=== PATIENT | female | born 1995 | race Caucasian/White ===

== ENCOUNTER → 2021-03-24 13:55 | Outpatient (BNVA) | payer OTHER, SELFPAY | PROVIDERS: Family Provider Nurse Practitioner Family; PCP Nurse Practitioner Family; Visit Provider Nurse Practitioner Family | DX: Z30.09 Encounter for other general counseling and advice on contraception (principal); I10 Essential (primary) hypertension | CPT/HCPCS: 81000; 81003; 81025 ==

== ENCOUNTER → 2021-05-01 12:00 | Outpatient (BNVA) | payer OTHER, SELFPAY | PROVIDERS: Family Provider Nurse Practitioner Family; PCP Nurse Practitioner Family; Visit Provider Nurse Practitioner Family | DX: I10 Essential (primary) hypertension; E78.5 Hyperlipidemia, unspecified | CPT/HCPCS: 80053; 80061; 83036 ==

== ENCOUNTER → 2022-04-19 10:21 | Outpatient (BNVA) | payer BC, SELFPAY | PROVIDERS: Family Provider Nurse Practitioner Family; Visit Provider Nurse Practitioner | DX: J02.9 Acute pharyngitis, unspecified (principal); J10.1 Influenza due to other identified influenza virus with other respiratory manifestations | CPT/HCPCS: 87071; 87880 ==

== ENCOUNTER → 2022-11-10 10:13 | Outpatient (BNVA) | payer SELFPAY | PROVIDERS: Family Provider Nurse Practitioner Family; PCP Family Medicine; Visit Provider Nurse Practitioner | DX: Z01.89 Encounter for other specified special examinations (principal) ==

== ENCOUNTER → 2022-11-26 11:00 | Outpatient (BNVA) | payer BC, SELFPAY | PROVIDERS: Family Provider Nurse Practitioner Family; PCP Family Medicine; Visit Provider Obstetrics & Gynecology | DX: N92.6 Irregular menstruation, unspecified (principal) | CPT/HCPCS: 83525 ==

== ENCOUNTER → 2023-03-11 07:54 | Outpatient (BNVA) | payer BC, SELFPAY | PROVIDERS: Family Provider Nurse Practitioner Family; PCP Clinical Nurse Specialist Adult Health; Visit Provider Clinical Nurse Specialist Adult Health | DX: N92.6 Irregular menstruation, unspecified (principal); Z68.42 Body mass index [BMI] 45.0-49.9, adult; E88.810 Metabolic syndrome | CPT/HCPCS: 80048; 83525 ==

== ENCOUNTER 2023-04-30 23:22 | Emergency (ER) | payer OTHER, SELFPAY ==
[2023-04-30 23:42] VITALS: BP 165/102; PULSE 89; RESP 17; TEMP 37; O2SAT 97; BMI 43.8
[2023-05-01 00:50] LABS: Basophils % 0.3 %; Eosinophils # 0.3 10^3/uL (0.0-0.8); Eosinophils % 3.7 %; Hematocrit 36.9 % (36-47); Lymphocytes # 2.2 10^3/uL (0.8-4.8); Lymphocytes % 25.8 %; Mean Corpuscular HGB Conc 34.4 g/dL (30-55); Mean Corpuscular Volume 95.8 fl (85-98); Mean Platelet Volume 9.6 fL (7.4-10.4); Monocytes # 0.5 10^3/uL (0.2-0.9); Monocytes % 5.6 %; Neutrophils # 5.53 10^3/uL (1.8-7.7); Neutrophils % 64.4 %; Nucleated Red Blood Cells % 0 %; Platelet Count 192 10^3/cmm (157-399); Red Blood Count 3.85 10^6/uL (3.85-5.65); Red Cell Distribution Width 14.1 % (12.1-15.1)
[2023-05-01 01:06] LABS: HCG, Serum Qual Negative (Negative)
[2023-05-01 01:13] LABS: Alanine Aminotransferase 49 U/L (0-33); Albumin Level 4.9 g/dL (3.5-5.2); Alkaline Phosphatase 69 U/L (35-105); Anion Gap 14.6 (5-19); Aspartate Amino Transferase 30 U/L (0-32); Blood Urea Nitrogen 11 mg/dL (6-20); Calcium 9.8 mg/dL (8.5-10.5); Carbon Dioxide 25 mmol/L (22-29); Chloride 104 mmol/L (98-107); Glomerular Filtration Rate 100.4 mL/min (90-130); Glucose 115 mg/dL (65-115); Osmolality Calculated 290 mOsm/kg (285-295); Potassium 3.6 mmol/L (3.5-5.1); Sodium 140 mmol/L (136-145); Total Bilirubin 0.6 mg/dL (0.15-1.2); Total Protein 7.9 g/dL (6.6-8.7)
--- NOTE | 2023-05-01 01:56 | USR_ITS ---
PROCEDURE INFORMATION: Exam: US Duplex Artery or Vein of the Abdominal and/or Reproductive Organs, Limited Ovaries Exam date and time: 05/01/2023 2:58 AM Age: 27 years old Clinical indication: Other: Bleeding; Pelvic pain; Additional info: Heavy vaginal bleeding TECHNIQUE: Imaging protocol: Real-time duplex ultrasound scan of the arterial or venous flow with grande scale, color Doppler flow and spectral waveform analysis with image documentation. Limited duplex exam focused on the ovaries. Duplex exam was performed to evaluate for torsion and other vascular conditions. COMPARISON: No relevant prior studies available. FINDINGS: Right ovary/adnexa: Normal duplex of the ovary. Normal Doppler waveforms and color flow. No evidence of ovarian torsion. Left ovary/adnexa: Normal duplex of the ovary. Normal Doppler waveforms and color flow. No evidence of ovarian torsion. PROCEDURE INFORMATION: Exam: US Pelvis, Transvaginal Exam date and time: 05/01/2023 2:58 AM Age: 27 years old Clinical indication: Other: Bleeding; Pelvic pain; Additional info: Heavy vaginal bleeding TECHNIQUE: Imaging protocol: Real-time transvaginal pelvic ultrasound with image documentation. Transvaginal imaging was used for better evaluation of the endometrium, adnexa, and/or cervix. COMPARISON: No relevant prior studies available. FINDINGS: Uterus: No focal uterine mass or endometrial thickening is identified. Right ovary/adnexa: Unremarkable. No mass. Normal ovarian blood flow. Left ovary/adnexa: Left ovarian complex cyst measures up to 21 x 19 x 16 mm. This has a cyst within a cyst appearance. No vascular or solid mass. Normal ovarian blood flow. Intraperitoneal space: Trace cul-de-sac free fluid. US/US transvaginal [id number] IMPRESSION: Normal duplex of the ovaries. No evidence of ovarian torsion. IMPRESSION: 1. Left ovarian complex cyst measures up to 21 x 19 x 16 mm. If pain persists, recommend short-term follow-up. 2. Trace cul-de-sac free fluid is probably physiologic. 3. Otherwise negative.
--- NOTE | 2023-05-01 04:27 | PC.NURSE ---
Pt sent home with 2tabs of Roslyn 5/[address] Lacey orders.
[2023-05-01] MEDS: ketorolac 10 mg Tablet PO (04:35)
[2023-05-01 05:02] VITALS: PULSE 97; RESP 18; O2SAT 97
--- NOTE | 2023-05-01 16:31 | ED_ITS ---
HPI - Female Genitourinary 2 General: Chief complaint: Vaginal Bleeding Stated complaint: heavy Vaginal Bleeding Time Seen by Provider: 05/01/23 02:16 History of Present Illness: Healthy 27 year old female presenting with risk vaginal bleeding. She notes that she has soaked several pads. She states that she had a long, stringy clot earlier in the day. [facility], and a urinalysis was negative. No other testing was done there. She does not normally have heavy periods, and if this is a period, she would be a week early. She has taken several tests recently, and they have been negative. No fever. No hx of procedures on cervix. No other signficant discharge. Associated symptoms: Reports abdominal pain; Deny nausea or vaginal discharge Review of Systems 2 GI: Reports: abdominal pain; Denies: nausea or vomiting : Reports: vaginal bleeding and pelvic pain; Denies: flank pain, difficulty voiding or vaginal discharge PFSH ED 2 PFSH: Medical History BMI 45.0-49.9, adult Hyperinsulinemia Hypertension labetalol effective Insomnia trazodone is effective Metabolic syndrome Subclinical hypothyroidism not currently on medication Surgical History No pertinent past surgical history Family History Father Hypertension Hyperlipidemia Other Diabetes Stroke Denies family history of CAD (coronary artery disease) Clotting disorder Dementia Psychiatric illness Chronic kidney disease (CKD) Anesthesia complication Bleeding disorder Lung disease Cancer Social History Smoking and tobacco/nicotine status: never used tobacco/nicotine Alcohol intake: never Substance/Drug Use: never Lives independently: Yes Marital status: Number of children: 0 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 needs: No Agree to transfusion: Yes Physical Exam 2 Const: COMMON NORMALS: no acute distress GENERAL APPEARANCE: cooperative; not ill appearing and not frail appearing HENMT: COMMON NORMALS: normocephalic and atraumatic HEAD & SCALP: n ormocephalic and atraumatic FACE & SINUS: normal facial exam and face symmetric Eye: COMMON NORMALS: EOMs intact bilaterally Neck/C-Spine: GENERAL: Yes trachea midline Chest: CHEST: Yes Symmetrical chest wall rise Resp: COMMON NORMALS: normal respiratory effort, No retractions, No use of accessory muscles and clear to auscultation bilaterally AUSCULTATION: clear to auscultation bilaterally Cardio: COMMON NORMALS: regular rate and regular rhythm RATE: regular rate RHYTHM: regular rhythm GI: COMMON NORMALS: Normal to inspection, nondistended, normoactive bowel sounds present : OTHER: suprapubic tenderness Extremity: COMMON NORMALS: no pedal edema Neuro: MARK COMA SCALE: document GCS findings [place] coma scale eye opening: Spontaneous [place] coma scale verbal response: Orientated Mark coma scale motor response: Obey commands [place] coma scale total score: 15 S ENSORY EXAM: Yes extremities (intact) Psych: COMMON NORMALS: speech normal SPEECH: Yes normal speech Skin: COMMON NORMALS: no rashes or lesions noted GENERAL SKIN EXAM: no rashes or lesions noted Course 2 Vital Signs: Vital signs: Vital Signs Temperature 98.6 F 04/30/23 23:42 Pulse Rate 97 05/01/23 05:02 Respiratory Rate 18 05/01/23 05:02 Blood Pressure 165/102 04/30/23 23:42 Pulse Oximetry 97 05/01/23 05:02 Oxygen Delivery Me thod Room Air 04/30/23 23:42 [facility] - Female Medical Decision Making Patient is hypertensive. Hemoglobin is 12.7. Platelet count is normal. BMP is normal. Liver enzymes are not remarkable. Serum negative. Ultrasound is performed, shows a normal cervix, blood flow to both ovaries, a complex left ovarian cyst. Normal endometrial stripe, and no mass. She'll be allowed home. Repeat hemoglobin if significant bleeding continues. She will be placed on five days of provera which should stop bleeding, and then provide a withdrawal bleed. This was explained to her. Outpatient follow up. Return for continued brisk bleeding. Lab Data 05/01/23 00:41 05/01/23 00:41 Radiology Impressions Transvaginal US 05/01/23 01:56 IMPRESSION: Normal duplex of the ovaries. No evidence of ovarian torsion. IMPRESSION: 1. Left ovarian complex cyst measures up to 21 x 19 x 16 mm. If pain persists, recommend short-term follow-up. 2. Trace cul-de-sac free fluid is probably physiologic. 3. Otherwise negative. Laboratory Results WBC 8.60 10^3/uL (3.29-11.43) 05/01/23 00:41 RBC 3.85 10^6/uL (3.85-5.65) 05/01/23 00:41 Hgb 12.70 g/dL (11.27-16.99) 05/01/23 00:41 Hct 36.9 % (36-47) 05/01/23 00:41 MCV 95.8 fl (85-98) 05/01/23 00:41 MCH 33.0 pg (27-33) 05/01/23 00:41 MCHC 34.4 g/dL (30-55) 05/01/23 00:41 RDW 14.1 % (12.1-15.1) 05/01/23 00:41 Plt Count 192 10^3/cmm (157-399) 05/01/23 00:41 MPV 9.6 fL (7.4-10.4) 05/01/23 00:41 Neut % (Auto) 64.4 % 05/01/23 00:41 Lymph % (Auto) 25.8 % 05/01/23 00:41 [place] % (Auto) 5.6 % 05/01/23 00:41 Eos % (Auto) 3.7 % 05/01/23 00:41 Baso % (Auto) 0.3 % 05/01/23 00:41 Neut # (Auto) 5.53 10^3/uL (1.8-7.7) 05/01/23 00:41 Lymph # (Auto) 2.2 10^3/uL (0.8-4.8) 05/01/23 00:41 [place] # (Auto) 0.5 10^3/uL (0.2-0.9) 05/01/23 00:41 Eos # (Auto) 0.3 10^3/uL (0.0-0.8) 05/01/23 00:41 Baso # (Auto) 0.0 10^3/uL (0.0-0.1) 05/01/23 00:41 Nucleated RBC % (auto) 0 % 05/01/23 00:41 Nucleated RBCs # 0.0 /100WBC 05/01/23 00:41 Sodium 140 mmol/L (136-145) 05/01/23 00:41 Potassium 3.6 mmol/L (3.5-5.1) 05/01/23 00:41 Chloride 104 mmol/L (98-107) 05/01/23 00:41 Carbon Dioxide 25 mmol/L (22-29) 05/01/23 00:41 Anion Gap 14.6 (5-19) 05/01/23 00:41 BUN 11 mg/dL (6-20) 05/01/23 00:41 Creatinine 0.7 mg/dL (0.5-0.9) 05/01/23 00:41 GFR Calculation 100.4 mL/min (90-130) 05/01/23 00:41 Glucose 115 mg/dL (65-115) 05/01/23 00:41 Calculated Osmolality 290 mOsm/kg (285-295) 05/01/23 00:41 Calcium 9.8 mg/dL (8.5-10.5) 05/01/23 00:41 Total Bilirubin 0.6 mg/dL (0.15-1.2) 05/01/23 00:41 AST 30 U/L (0-32) 05/01/23 00:41 ALT 49 U/L (0-33) H 05/01/23 00:41 Alkaline Phosphatase 69 U/L (35-105) 05/01/23 00:41 Total Protein 7.9 g/dL (6.6-8.7) 05/01/23 00:41 Albumin 4.9 g/dL (3.5-5.2) 05/01/23 00:41 Globulin 3.0 g/dL (1.3-4.6) 05/01/23 00:41 HCG, Qual Negative (Negative) 05/01/23 00:41 All radiology interpretation(s) finalized by discharge Discharge Plan Discharge Patient Disposition: Home Clinical Impression: Dysfunctional uterine bleeding Condition: Stable Prescriptions: New Provera 10 mg tablet 10 mg PO DAILY 5 Days Qty: 5 0RF Rx Instructions: begin day 21 of cycle ketorolac 10 mg tablet 10 mg PO TID PRN (Reason: pain) Qty: 12 0RF No Action prenat.vits,rowena,hao-ahwj-mrlda Tablet 1 tab PO DAILY cetirizine 10 mg tablet 10 mg PO DAILY PRN (Reason: allergy symptoms) Qty: 30 0RF labetalol 200 mg tablet 200 mg PO BID Qty: 180 3RF metformin 500 mg tablet extended release 24 hr 500 mg PO BID Qty: 60 6RF trazodone 50 mg tablet 50 mg PO .qhs Qty: 90 0RF Discharge Orders: Discharge ED (Routine); Ordered 05/01/23 Ordered By: Johnny Lacey Patient Instructions: Abnormal (Dysfunctional) Uterine Bleeding (ED), Opioid Safety, Pain Management Activity Restrictions/Additional Instructions: Medication as directed. See your doctor next week. Have your blood count rechecked in a few days. Return for continuing to saturate pads at a rate of a pad every 1-2 hours for 3-4 consecutive hours despite treatment, fever, increasing pain, other concerning symptoms. Coding Level of Care Code ED Veneer Matcher for Antonio Maldonado
== END 2023-05-01 05:00 | disposition home or self-care (01) ==
PROVIDERS: Emergency Medicine; Emergency Provider Emergency Medicine
DX: N93.8 Other specified abnormal uterine and vaginal bleeding (principal); Z79.84 Long term (current) use of oral hypoglycemic drugs; N83.292 Other ovarian cyst, left side; I10 Essential (primary) hypertension
CPT/HCPCS: 36415; 76830; 80053; 81025; 84703; 85025; 99284

== ENCOUNTER → 2023-10-26 08:49 | Outpatient (BNVA) | payer SELFPAY | PROVIDERS: Visit Provider Nurse Practitioner Women's Health | DX: E28.2 Polycystic ovarian syndrome (principal); N97.0 Female infertility associated with anovulation; N92.6 Irregular menstruation, unspecified | CPT/HCPCS: 82306; 82670; 83001; 83002; 83036; 83520; 84146; 84439; 84443; 84481; 87491; 87591 ==

== ENCOUNTER 2023-11-13 06:00 | Outpatient (CLI) | payer OTHER, SELFPAY ==
[2023-11-13 09:30] LABS: Progesterone 1.66 ng/mL
== END 2023-11-13 06:01 | disposition home or self-care (01) ==
LOC: LAB 02-02 12:43
PROVIDERS: PCP Clinical Nurse Specialist Adult Health
DX: E28.2 Polycystic ovarian syndrome (principal); N97.0 Female infertility associated with anovulation
CPT/HCPCS: 36415; 84144

== ENCOUNTER → 2023-11-22 15:29 | Outpatient (BNVA) | payer OTHER, SELFPAY | PROVIDERS: PCP Clinical Nurse Specialist Adult Health; Visit Provider Nurse Practitioner Women's Health | DX: Z34.90 Encounter for supervision of normal pregnancy, unspecified, unspecified trimester (principal) | CPT/HCPCS: 76830 ==

== ENCOUNTER → 2023-11-29 12:10 | Outpatient (BNVA) | payer OTHER, SELFPAY | PROVIDERS: PCP Clinical Nurse Specialist Adult Health; Visit Provider Obstetrics & Gynecology | DX: N92.6 Irregular menstruation, unspecified (principal) | CPT/HCPCS: 84702 ==

== ENCOUNTER → 2023-12-01 12:05 | Outpatient (BNVA) | payer OTHER, SELFPAY | PROVIDERS: PCP Clinical Nurse Specialist Adult Health; Visit Provider Nurse Practitioner Women's Health | DX: N92.6 Irregular menstruation, unspecified (principal) | CPT/HCPCS: 84702 ==

== ENCOUNTER → 2023-12-09 09:09 | Outpatient (BNVA) | payer OTHER, SELFPAY | PROVIDERS: PCP Clinical Nurse Specialist Adult Health; Visit Provider Nurse Practitioner Women's Health | DX: Z34.90 Encounter for supervision of normal pregnancy, unspecified, unspecified trimester (principal) | CPT/HCPCS: 84702 ==

== ENCOUNTER → 2023-12-28 15:15 | Outpatient (BNVA) | payer OTHER, SELFPAY | PROVIDERS: PCP Clinical Nurse Specialist Adult Health; Visit Provider Nurse Practitioner Women's Health | DX: Z36.87 Encounter for antenatal screening for uncertain dates (principal) | CPT/HCPCS: 76801 ==

== ENCOUNTER → 2023-12-30 07:57 | Outpatient (BNVA) | payer OTHER, SELFPAY | PROVIDERS: PCP Clinical Nurse Specialist Adult Health; Visit Provider Nurse Practitioner Women's Health | DX: Z34.90 Encounter for supervision of normal pregnancy, unspecified, unspecified trimester (principal) | CPT/HCPCS: 80307; 84315; 84439; 84443; 84481; 85025; 86592; 86762; 86803; 86850; 86900; 87086; 87340; 87491; 87591; 87806 ==

== ENCOUNTER → 2024-02-08 09:17 | Outpatient (BNVA) | payer OTHER, SELFPAY | PROVIDERS: PCP Clinical Nurse Specialist Adult Health; Visit Provider Obstetrics & Gynecology | DX: Z34.90 Encounter for supervision of normal pregnancy, unspecified, unspecified trimester (principal) | CPT/HCPCS: 82950 ==

== ENCOUNTER → 2024-03-23 14:16 | Outpatient (BNVA) | payer OTHER, SELFPAY | PROVIDERS: PCP Clinical Nurse Specialist Adult Health; Visit Provider Obstetrics & Gynecology | DX: Z36.2 Encounter for other antenatal screening follow-up (principal); Z3A.20 20 weeks gestation of pregnancy | CPT/HCPCS: 76805 ==

== ENCOUNTER → 2024-04-21 11:57 | Outpatient (BNVA) | payer OTHER, SELFPAY | PROVIDERS: PCP Clinical Nurse Specialist Adult Health; Visit Provider Obstetrics & Gynecology | DX: O26.899 Other specified pregnancy related conditions, unspecified trimester (principal); Z67.91 Unspecified blood type, Rh negative | CPT/HCPCS: 82950 ==

== ENCOUNTER 2024-05-09 09:15 | Outpatient (CLI) | payer OTHER, SELFPAY ==
[2024-05-09] VITALS (15 sets, daily range): BP systolic 125–164; BP diastolic 71–109; PULSE 93–125; BMI 42.1
--- NOTE | 2024-05-09 10:09 | USR_ITS ---
PROCEDURE INFORMATION: Exam: US Biophysical Profile Without Non-Stress Test Exam date and time: 05/09/2024 10:26 AM Age: 28 years old Clinical indication: Other: Gestational hypertension; . No history of recent trauma or surgery is provided. TECHNIQUE: Imaging protocol: US biophysical profile without non-stress testing. 30image(s) are provided. COMPARISON: US OB >= 14 weeks fetus [id number] 03/23/2024 2:20 PM FINDINGS: heart rate: 147 bpm presentation and position: There appears to be vertex presentation currently. There is limited , extremity survey evaluation. Placenta: The placenta appears to be anterior. Amniotic fluid index: MAXIMUS is 16.74 cm currently. BIOPHYSICAL PROFILE: breathing (BPP): 2 out of 2. gross body movement (BPP): 2 out of 2. tone (BPP): 2 out of 2. Amniotic fluid (BPP): 2 out of 2. MATERNAL ANATOMY: Cervix: Cervical length measures 6.8 cm. No localized fluid collections are appreciated. Urinary bladder: The partially filled maternal bladder contours appear unremarkable overall. No other significant interval changes are appreciated. US/US OB BPP wo NST [id number] IMPRESSION: SLIUP is demonstrated with 01/05 biophysical profile.
[2024-05-09 10:18] LABS: Bilirubin Urine Negative (Negative); Blood Urine Negative (Negative); Glucose Urine UA Negative (Normal); Ketones Urine Negative (Negative); Leukocyte Esterase Urine Trace (Negative); Nitrate Urine Negative (Negative); Protein Urine Negative (Negative); Specific Gravity, Urine 1.024 (1.005-1.030); Urine Appearance Cloudy (CLEAR)
[2024-05-09 10:23] LABS: Basophils % 0.1 %; Eosinophils # 0.1 10^3/uL (0.0-0.8); Eosinophils % 1.2 %; Hematocrit 30.8 % (36-47); Lymphocytes # 1.1 10^3/uL (0.8-4.8); Lymphocytes % 13.4 %; Mean Corpuscular HGB Conc 33.8 g/dL (30-55); Mean Corpuscular Hemoglobin 32.5 pg (27-33); Mean Corpuscular Volume 96.3 fl (85-98); Mean Platelet Volume 9.5 fL (7.4-10.4); Monocytes # 0.3 10^3/uL (0.2-0.9); Monocytes % 4.2 %; Neutrophils # 6.56 10^3/uL (1.8-7.7); Neutrophils % 80.2 %; Nucleated Red Blood Cells % 0 %; Platelet Count 166 10^3/cmm (157-399); Red Cell Distribution Width 16.8 % (12.1-15.1); White Blood Count 8.18 10^3/uL (3.29-11.43)
[2024-05-09 10:33] LABS: Urine Color Orange (Yellow)
[2024-05-09 10:34] LABS: UA Manual Slide Review YES; UA Slide Review UA Slide Review Perf
[2024-05-09 10:35] LABS: Add Urine Culture? No; Add Urine Microscopic? YES; Bacteria Urine TRACE /hpf; Hyaline Casts Urine 0-4 /lpf; Mucus Urine 1+ /hpf; RBC Urine 0-4 /hpf (0-2); Transitional Epi Cells Urine 0-4 /hpf; WBC Urine 0-4 /hpf (0-5)
[2024-05-09 10:36] LABS: Urine Creatinine 212 mg/dL (28-217); Urine Protein Random 15 mg/dL
[2024-05-09 10:38] LABS: UPRO/UCREAT Ratio 0.07 mg/mg CR
[2024-05-09 10:40] LABS: Alanine Aminotransferase 8 U/L (0-33); Albumin Level 3.9 g/dL (3.5-5.2); Alkaline Phosphatase 59 U/L (35-105); Anion Gap 13.8 (5-19); Aspartate Amino Transferase 11 U/L (0-32); Blood Urea Nitrogen 7 mg/dL (6-20); Calcium 9.7 mg/dL (8.5-10.5); Carbon Dioxide 23 mmol/L (22-29); Chloride 102 mmol/L (98-107); Creatinine Clr Calc Pharmacy 189.0037; Globulin 2.7 g/dL (1.3-4.6); Glucose 108 mg/dL (65-115); Osmolality Calculated 279 mOsm/kg (285-295); Potassium 3.8 mmol/L (3.5-5.1); Sodium 135 mmol/L (136-145); Total Bilirubin 0.7 mg/dL (0.15-1.2); Total Protein 6.6 g/dL (6.6-8.7); Uric Acid 5.4 mg/dL (2.4-5.7)
[2024-05-09] MEDS: NIFEdipine 10 mg Capsule PO (11:26)
--- NOTE | 2024-05-09 12:29 | ECG_ITS ---
Fileboard Test Date: 2024-05-09 Pat Name: Della Cantu Department: Room: OB13 Gender: Female Record Maker: : 1995 Requested By: Ignacio Dominique Order Number: [id number] MD: Renan Mueller M.D. Measurements Intervals [place] Rate: 117 P: 20 [place]: 148 QRS: 5 QRSD: 78 T: -8 QT: 331 QTc: 462 Interpretive Statements SINUS TACHYCARDIA MODERATE VOLTAGE CRITERIA FOR LVH, CONSIDER NORMAL VARIANT [MEETS CRITERIA IN ONE OF: R(aVL), S(V1), R(V5), R(V5/V6)+S(V1)] NONSPECIFIC T-WAVE ABNORMALITY ABNORMAL RHYTHM ECG No previous ECG available for comparison Electronically Signed On 05-10-2024 01:10:25 SHIRT SORTER by Renan Mueller M.D. [email or web address]
== END 2024-05-09 14:00 | disposition home or self-care (01) ==
LOC: OPOB 09:21 → OBGYN 09:23
PROVIDERS: PCP Clinical Nurse Specialist Adult Health; Visit Provider Obstetrics & Gynecology
DX: O26.899 Other specified pregnancy related conditions, unspecified trimester (principal); Z3A.00 Weeks of gestation of pregnancy not specified; R42 Dizziness and giddiness
CPT/HCPCS: 36415; 59025; 76819; 80053; 81001; 82570; 84156; 84550; 85025; 93005; 99211

== ENCOUNTER 2024-05-19 14:55 | Outpatient (CLI) | payer OTHER, SELFPAY ==
--- NOTE | 2024-05-19 15:10 | PC.NURSE ---
Patient sent from clinic with Rhogam injection. Rhogam given in right gluteus. Lot number [id number]. expiration 11/21/25
== END 2024-05-19 15:12 | disposition home or self-care (01) ==
LOC: OPOB 15:06 → OBGYN 15:06
PROVIDERS: PCP Clinical Nurse Specialist Adult Health; Visit Provider Obstetrics & Gynecology
DX: O26.899 Other specified pregnancy related conditions, unspecified trimester (principal); Z3A.00 Weeks of gestation of pregnancy not specified
CPT/HCPCS: 84315; 85025

== ENCOUNTER 2024-06-05 15:34 | Outpatient (CLI) | payer OTHER, SELFPAY ==
[2024-06-05 15:41] VITALS: RESP 18
[2024-06-05 15:43] VITALS: BP 158/102; PULSE 117
[2024-06-05 15:59] VITALS: BP 131/78; PULSE 109
[2024-06-05 16:06] VITALS: RESP 18
== END 2024-06-05 16:10 ==
LOC: OPOB 15:34 → OBGYN 15:35
PROVIDERS: PCP Clinical Nurse Specialist Adult Health; Visit Provider Obstetrics & Gynecology
DX: O16.9 Unspecified maternal hypertension, unspecified trimester (principal); Z3A.00 Weeks of gestation of pregnancy not specified
CPT/HCPCS: 59025

== ENCOUNTER → 2024-06-16 13:47 | Outpatient (BNVA) | payer OTHER, SELFPAY | PROVIDERS: PCP Clinical Nurse Specialist Adult Health; Visit Provider Obstetrics & Gynecology | DX: O10.919 Unspecified pre-existing hypertension complicating pregnancy, unspecified trimester (principal); Z3A.32 32 weeks gestation of pregnancy | CPT/HCPCS: 84315 ==

== ENCOUNTER 2024-06-22 16:00 | Outpatient (CLI) | payer OTHER, SELFPAY ==
[2024-06-22] VITALS (13 sets, daily range): BP systolic 137–174; BP diastolic 89–108; PULSE 101–114; RESP 16; BMI 42.4
[2024-06-22] MEDS: NIFEdipine ER (24 hr) 30 mg Tablet PO (17:58)
--- NOTE | 2024-06-22 18:10 | P.TNLD_ITS ---
OB L&D Triage Visit Information: Date of evaluation: 06/22/24 Comments/Additional reason(s) for visit: Patient seen in L&D 28 y.o. 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 BPs 158 / 97; 153 / 93; 162 / 94; 174 / 93; 167 / 102 General comfortable Lungs: clear Cor: RRR Abd: nontender Ext: no edema External monitor: heart tracing good variability, + accelerations OB sono 03-23-24 20 wks; WNL 1-h glucola 04-21-24 108 A/P: 33 w 3 d Chronic hypertension Fetus reassuring BPs elevated Will give her PM dose of Procardia 30 mg XL Plan 24-h urine collection for protein Patient has f/u ob sono appointment Patient has f/u appointment with Dr. Quick Discharge to home Continue checking BPs at home Call / return if headaches, swelling, blurry vision Evaluation: monitor accelerations: Present 15x15 Vital signs: Vital Signs - 24 hr 06/22/24 16:16 06/22/24 16:31 06/22/24 16:46 Pulse Rate 107 H 108 H 104 H Respiratory Rate Blood Pressure 174/93 159/98 162/94 06/22/24 17:01 06/22/24 17:16 06/22/24 17:16 Pulse Rate 105 H 107 H Respiratory Rate Blood Pressure 153/93 158/97 06/22/24 17:31 06/22/24 17:31 06/22/24 17:46 Pulse Rate 114 H Respiratory Rate Blood Pressure 167/102 159/104 06/22/24 17:46 06/22/24 18:01 06/22/24 18:01 Pulse Rate 107 H 101 H Respiratory Rate Blood Pressure 168/104 06/22/24 18:16 06/22/24 18:16 06/22/24 18:31 Pulse Rate 103 H Respiratory Rate Blood Pressure 171/108 173/106 06/22/24 18:31 06/22/24 18:46 06/22/24 18:46 Pulse Rate 105 H 103 H Respiratory Rate Blood Pressure 142/89 06/22/24 19:01 06/22/24 19:01 06/22/24 19:06 Pulse Rate 107 H 107 H Respiratory Rate 16 Blood Pressure 137/89 137/89 Care VIKRAM Calculator Estimated Delivery Date Method Current WG Current Estimate 08/07/24 Ultrasound #1 33w 3d Other Estimates 07/30/24 LMP (Uncertain) 34w 4d Specific Issues/Plans * SUPERVISION OF FIRST NORMAL * ANXIETY AND DEPRESSION * CHRONIC HYPERTENSION: started on procardia 30 mg XL BID * HX OF SUBCLINICAL HYPOTHYROIDISM: TSH 1.25 on 12/30/23 * NAUSEA AND VOMITING DURING : taking zofran 4 mg PRN * RH NEGATIVE STATUS IN : Plan for rhogam at 28 week visit Coding Level of Care Code Acute Code for Chg Fwd Time Spent (min) 60
== END 2024-06-22 19:11 | disposition home or self-care (01) ==
LOC: OPOB 16:02 → OBGYN 16:04
PROVIDERS: PCP Clinical Nurse Specialist Adult Health; Visit Provider Obstetrics & Gynecology
DX: O16.3 Unspecified maternal hypertension, third trimester (principal); Z3A.33 33 weeks gestation of pregnancy
CPT/HCPCS: 59025; 99211

== ENCOUNTER 2024-06-27 15:55 | Outpatient (CLI) | payer OTHER, SELFPAY ==
[2024-06-27 16:00] VITALS: BMI 42.7
[2024-06-27 16:10] VITALS: BP 159/96; PULSE 118
[2024-06-27 16:30] VITALS: BP 131/89; PULSE 111
[2024-06-27 16:40] VITALS: BP 131/89; PULSE 111; RESP 18
== END 2024-06-27 16:40 | disposition home or self-care (01) ==
LOC: OPOB 15:57 → OBGYN 15:59
PROVIDERS: PCP Clinical Nurse Specialist Adult Health; Visit Provider Obstetrics & Gynecology
DX: O16.9 Unspecified maternal hypertension, unspecified trimester (principal); Z3A.00 Weeks of gestation of pregnancy not specified
CPT/HCPCS: 59025; 99211

== ENCOUNTER → 2024-06-29 07:55 | Outpatient (BNVA) | payer OTHER, SELFPAY | PROVIDERS: PCP Clinical Nurse Specialist Adult Health; Visit Provider Obstetrics & Gynecology | DX: O10.919 Unspecified pre-existing hypertension complicating pregnancy, unspecified trimester (principal); Z3A.00 Weeks of gestation of pregnancy not specified | CPT/HCPCS: 76819 ==

== ENCOUNTER 2024-06-29 10:09 | Outpatient (CLI) | payer OTHER, SELFPAY ==
[2024-06-29] VITALS (13 sets, daily range): BP systolic 130–185; BP diastolic 73–114; PULSE 88–118; BMI 41.8
[2024-06-29 10:40] LABS: Basophils % 0.1 %; Bilirubin Urine Negative (Negative); Blood Urine 2+ (Negative); Eosinophils % 0.3 %; Glucose Urine UA Negative (Normal); Hematocrit 34.1 % (36-47); Ketones Urine Trace (Negative); Leukocyte Esterase Urine 1+ (Negative); Lymphocytes # 1.6 10^3/uL (0.8-4.8); Lymphocytes % 15.4 %; Mean Corpuscular Hemoglobin 32.4 pg (27-33); Mean Corpuscular Volume 95.3 fl (85-98); Monocytes # 0.3 10^3/uL (0.2-0.9); Monocytes % 3.3 %; Neutrophils # 8.08 10^3/uL (1.8-7.7); Nitrate Urine Negative (Negative); Nucleated Red Blood Cells % 0 %; Platelet Count 252 10^3/cmm (157-399); Protein Urine Trace (Negative); Red Blood Count 3.58 10^6/uL (3.85-5.65); Red Cell Distribution Width 17.2 % (12.1-15.1); Specific Gravity, Urine 1.024 (1.005-1.030); Urine Appearance Cloudy (CLEAR); pH Urine 5.5 (5-7)
[2024-06-29 10:45] LABS: Add Urine Microscopic? YES; Bacteria Urine 4+ /hpf; Hyaline Casts Urine 1.21 /lpf; RBC Urine 51-100 /hpf (0-2); Squamous Epithelial Cell Urine 21-50 /hpf (0-5)
[2024-06-29 10:55] LABS: Urine Color Dark Yellow (Yellow)
[2024-06-29 10:56] LABS: Add Urine Culture? Yes
[2024-06-29 10:58] LABS: Alanine Aminotransferase 9 U/L (0-33); Albumin Level 3.9 g/dL (3.5-5.2); Alkaline Phosphatase 94 U/L (35-105); Anion Gap 19.7 (5-19); Aspartate Amino Transferase 19 U/L (0-32); Blood Urea Nitrogen 9 mg/dL (6-20); Calcium 9.3 mg/dL (8.5-10.5); Carbon Dioxide 20 mmol/L (22-29); Chloride 99 mmol/L (98-107); Creatinine Clr Calc Pharmacy 188.4043; Globulin 2.9 g/dL (1.3-4.6); Glucose 115 mg/dL (65-115); Osmolality Calculated 280 mOsm/kg (285-295); Potassium 3.7 mmol/L (3.5-5.1); Sodium 135 mmol/L (136-145); Total Bilirubin 0.7 mg/dL (0.15-1.2); Total Protein 6.8 g/dL (6.6-8.7); Uric Acid 6.5 mg/dL (2.4-5.7)
[2024-06-29 10:59] LABS: Urine Creatinine 267 mg/dL (28-217)
[2024-06-29 11:01] LABS: UPRO/UCREAT Ratio 0.08 mg/mg CR; Urine Protein Random 22 mg/dL
[2024-06-29] MEDS: nitrofurantoin SR (BID) 100 mg Capsule PO (11:40)
[2024-06-29] MEDS: labetalol 5 mg/mL SDV 20mL 20 MG IVP (11:41)
--- NOTE | 2024-06-29 13:14 | PC.NURSE ---
Prescription called to [facility] on [address] at this time.
== END 2024-06-29 13:00 | disposition home or self-care (01) ==
LOC: OPOB 10:09 → OBGYN 10:10
PROVIDERS: PCP Clinical Nurse Specialist Adult Health; Visit Provider Obstetrics & Gynecology
DX: O26.899 Other specified pregnancy related conditions, unspecified trimester (principal); Z3A.00 Weeks of gestation of pregnancy not specified
CPT/HCPCS: 36415; 59025; 80053; 81001; 82570; 84156; 84315; 84550; 85025; 87086; 96374; 99211; J3490

== ENCOUNTER 2024-07-03 11:48 | Outpatient (CLI) | payer OTHER, SELFPAY ==
[2024-07-03 13:04] LABS: Total Volume, Urine 2000 mL
== END 2024-07-03 11:49 | disposition home or self-care (01) ==
LOC: LAB 11:52
PROVIDERS: PCP Clinical Nurse Specialist Adult Health; Visit Provider Obstetrics & Gynecology
DX: O13.9 Gestational [pregnancy-induced] hypertension without significant proteinuria, unspecified trimester (principal); R80.9 Proteinuria, unspecified
CPT/HCPCS: 84156

== ENCOUNTER 2024-07-03 16:07 | Outpatient (CLI) | payer OTHER, SELFPAY ==
[2024-07-03 16:07] VITALS: BMI 42.3
[2024-07-03 16:28] VITALS: BP 133/81; PULSE 109
[2024-07-03 16:43] VITALS: BP 134/83; PULSE 105
== END 2024-07-03 16:49 | disposition home or self-care (01) ==
LOC: OPOB 16:10 → OBGYN 16:12
PROVIDERS: PCP Clinical Nurse Specialist Adult Health; Visit Provider Obstetrics & Gynecology
DX: O16.9 Unspecified maternal hypertension, unspecified trimester (principal); Z3A.00 Weeks of gestation of pregnancy not specified
CPT/HCPCS: 59025

== ENCOUNTER 2024-07-06 11:20 | Outpatient (CLI) | payer OTHER, SELFPAY ==
[2024-07-06 11:30] VITALS: BP 174/105; PULSE 99
[2024-07-06 11:31] VITALS: BMI 42.5
[2024-07-06 11:44] VITALS: BP 162/90; PULSE 104
[2024-07-06 11:46] VITALS: BP 146/80; PULSE 111
[2024-07-06 12:25] VITALS: BP 139/94; PULSE 101
[2024-07-06 12:36] LABS: Bilirubin Urine Negative (Negative); Blood Urine Negative (Negative); Glucose Urine UA Negative (Normal); Ketones Urine 1+ (Negative); Leukocyte Esterase Urine Negative (Negative); Nitrate Urine Negative (Negative); Protein Urine Negative (Negative); Specific Gravity, Urine 1.024 (1.005-1.030); Urine Appearance Clear (CLEAR); Urine Color Yellow (Yellow); pH Urine 5.5 (5-7)
[2024-07-06 12:40] VITALS: BP 139/94; PULSE 101; RESP 17
[2024-07-06 12:41] LABS: Add Urine Microscopic? YES; Bacteria Urine 1+ /hpf; Hyaline Casts Urine 1.65 /lpf; RBC Urine 0-2 /hpf (0-2); WBC Urine 0-5 /hpf (0-5)
[2024-07-06 12:45] LABS: Basophils % 0.1 %; Eosinophils # 0.1 10^3/uL (0.0-0.8); Eosinophils % 0.6 %; Hematocrit 34.2 % (36-47); Lymphocytes # 1.7 10^3/uL (0.8-4.8); Lymphocytes % 18.3 %; Mean Corpuscular HGB Conc 33.3 g/dL (30-55); Mean Corpuscular Hemoglobin 32.9 pg (27-33); Mean Corpuscular Volume 98.6 fl (85-98); Monocytes # 0.5 10^3/uL (0.2-0.9); Monocytes % 5.1 %; Neutrophils % 75.3 %; Nucleated Red Blood Cells % 0 %; Platelet Count 231 10^3/cmm (157-399); Red Blood Count 3.47 10^6/uL (3.85-5.65); Red Cell Distribution Width 17.5 % (12.1-15.1)
[2024-07-06 12:54] LABS: Urine Creatinine 237 mg/dL (28-217); Urine Protein Random 17 mg/dL
[2024-07-06 12:57] LABS: UPRO/UCREAT Ratio 0.07 mg/mg CR
[2024-07-06 13:04] LABS: Alanine Aminotransferase 7 U/L (0-33); Albumin Level 3.8 g/dL (3.5-5.2); Alkaline Phosphatase 92 U/L (35-105); Aspartate Amino Transferase 12 U/L (0-32); Blood Urea Nitrogen 8 mg/dL (6-20); Calcium 8.8 mg/dL (8.5-10.5); Carbon Dioxide 19 mmol/L (22-29); Chloride 101 mmol/L (98-107); Creatinine Clr Calc Pharmacy 188.5052; Glomerular Filtration Rate 118.2 mL/min (90-130); Glucose 86 mg/dL (65-115); Osmolality Calculated 280 mOsm/kg (285-295); Sodium 136 mmol/L (136-145); Total Bilirubin 0.6 mg/dL (0.15-1.2); Total Protein 6.8 g/dL (6.6-8.7); Uric Acid 5.7 mg/dL (2.4-5.7)
== END 2024-07-06 12:40 | disposition home or self-care (01) ==
LOC: OPOB 11:20 → OBGYN 11:21
PROVIDERS: PCP Clinical Nurse Specialist Adult Health; Visit Provider Obstetrics & Gynecology
DX: O16.9 Unspecified maternal hypertension, unspecified trimester (principal); Z3A.00 Weeks of gestation of pregnancy not specified
CPT/HCPCS: 36415; 59025; 76816; 76819; 80053; 81001; 82570; 84156; 84550; 85025; 99211

== ENCOUNTER 2024-07-11 15:40 | Outpatient (CLI) | payer OTHER, SELFPAY ==
[2024-07-11] VITALS (10 sets, daily range): BP systolic 128–170; BP diastolic 81–103; PULSE 98–113; RESP 17; O2SAT 98; BMI 27.3
[2024-07-11 17:23] LABS: Urine Creatinine 188 mg/dL (28-217); Urine Protein Random 17 mg/dL
[2024-07-11 17:24] LABS: UPRO/UCREAT Ratio 0.09 mg/mg CR
== END 2024-07-11 17:30 | disposition home or self-care (01) ==
LOC: OPOB 15:44 → OBGYN 15:45
PROVIDERS: PCP Clinical Nurse Specialist Adult Health; Visit Provider Obstetrics & Gynecology
DX: O16.9 Unspecified maternal hypertension, unspecified trimester (principal); Z3A.00 Weeks of gestation of pregnancy not specified
CPT/HCPCS: 59025; 82570; 84156; 99211

== ENCOUNTER → 2024-07-13 15:25 | Outpatient (BNVA) | payer OTHER, SELFPAY | PROVIDERS: PCP Clinical Nurse Specialist Adult Health; Visit Provider Obstetrics & Gynecology | DX: Z34.93 Encounter for supervision of normal pregnancy, unspecified, third trimester (principal); Z3A.36 36 weeks gestation of pregnancy | CPT/HCPCS: 76816; 76819 ==

== ENCOUNTER 2024-07-14 14:26 | Outpatient (CLI) | payer OTHER, SELFPAY ==
[2024-07-14] VITALS (17 sets, daily range): BP systolic 136–163; BP diastolic 85–99; PULSE 99–114
[2024-07-14 15:06] LABS: Basophils % 0.1 %; Eosinophils # 0.1 10^3/uL (0.0-0.8); Eosinophils % 0.6 %; Hematocrit 36.1 % (36-47); Lymphocytes # 1.5 10^3/uL (0.8-4.8); Lymphocytes % 15.3 %; Mean Corpuscular Hemoglobin 33.3 pg (27-33); Mean Corpuscular Volume 107.4 fl (85-98); Mean Platelet Volume 10.1 fL (7.4-10.4); Monocytes # 0.4 10^3/uL (0.2-0.9); Monocytes % 4.2 %; Neutrophils # 7.51 10^3/uL (1.8-7.7); Neutrophils % 79.5 %; Nucleated Red Blood Cells % 0 %; Platelet Count 204 10^3/cmm (157-399); Red Blood Count 3.36 10^6/uL (3.85-5.65); Red Cell Distribution Width 17.2 % (12.1-15.1); White Blood Count 9.46 10^3/uL (3.29-11.43)
[2024-07-14 15:09] LABS: Bilirubin Urine Negative (Negative); Blood Urine 1+ (Negative); Glucose Urine UA Negative (Normal); Ketones Urine Trace (Negative); Leukocyte Esterase Urine Negative (Negative); Nitrate Urine Negative (Negative); Protein Urine 1+ (Negative); Urine Appearance Turbid (CLEAR)
[2024-07-14 15:14] LABS: Add Urine Microscopic? YES; Bacteria Urine 1+ /hpf; Hyaline Casts Urine 2.87 /lpf; RBC Urine 0-2 /hpf (0-2); Squamous Epithelial Cell Urine 21-50 /hpf (0-5)
[2024-07-14 15:26] LABS: Specific Gravity, Urine 1.032 (1.005-1.030); UA Slide Review UA Slide Review Perf; Urine Color Orange (Yellow)
[2024-07-14 15:30] LABS: Alanine Aminotransferase 7 U/L (0-33); Albumin Level 3.5 g/dL (3.5-5.2); Alkaline Phosphatase 91 U/L (35-105); Anion Gap 20.3 (5-19); Aspartate Amino Transferase 9 U/L (0-32); Blood Urea Nitrogen 11 mg/dL (6-20); Calcium 9.1 mg/dL (8.5-10.5); Carbon Dioxide 18 mmol/L (22-29); Chloride 104 mmol/L (98-107); Globulin 2.9 g/dL (1.3-4.6); Glomerular Filtration Rate 84.8 mL/min (90-130); Glucose 105 mg/dL (65-115); Osmolality Calculated 286 mOsm/kg (285-295); Potassium 4.3 mmol/L (3.5-5.1); Sodium 138 mmol/L (136-145); Total Bilirubin 0.6 mg/dL (0.15-1.2); Total Protein 6.4 g/dL (6.6-8.7); Uric Acid 6.6 mg/dL (2.4-5.7)
[2024-07-14 15:31] LABS: UPRO/UCREAT Ratio 0.11 mg/mg CR; Urine Creatinine 378 mg/dL (28-217); Urine Protein Random 40 mg/dL
== END 2024-07-14 17:15 | disposition home or self-care (01) ==
LOC: OPOB 14:26 → OBGYN 14:27
PROVIDERS: PCP Clinical Nurse Specialist Adult Health; Visit Provider Obstetrics & Gynecology
DX: O26.899 Other specified pregnancy related conditions, unspecified trimester (principal); Z3A.00 Weeks of gestation of pregnancy not specified
CPT/HCPCS: 36415; 59025; 80053; 81001; 82570; 84156; 84315; 84550; 85025; 87081; 99211

== ENCOUNTER 2024-07-17 07:52 | Inpatient (IN) | payer OTHER, SELFPAY ==
[2024-07-17] VITALS (29 sets, daily range): BP systolic 127–166; BP diastolic 79–113; PULSE 88–134; BMI 43.4
[2024-07-17 07:34] LABS: Basophils % 0.1 %; Eosinophils # 0.1 10^3/uL (0.0-0.8); Eosinophils % 1.2 %; Hematocrit 35.3 % (36-47); Lymphocytes # 1.8 10^3/uL (0.8-4.8); Mean Corpuscular HGB Conc 34.8 g/dL (30-55); Mean Corpuscular Hemoglobin 32.8 pg (27-33); Mean Corpuscular Volume 94.1 fl (85-98); Mean Platelet Volume 10.1 fL (7.4-10.4); Monocytes # 0.4 10^3/uL (0.2-0.9); Monocytes % 3.8 %; Neutrophils # 7.02 10^3/uL (1.8-7.7); Neutrophils % 75.4 %; Nucleated Red Blood Cells % 0 %; Platelet Count 215 10^3/cmm (157-399); Red Blood Count 3.75 10^6/uL (3.85-5.65); Red Cell Distribution Width 16.8 % (12.1-15.1); White Blood Count 9.31 10^3/uL (3.29-11.43)
[2024-07-17] MEDS: miSOPROStol 100 mcg tablet 25 MCG VAGINAL ×4 (08:09→21:24)
[2024-07-17 08:15] LABS: Bilirubin Urine Negative (Negative); Blood Urine Negative (Negative); Glucose Urine UA Negative (Normal); Ketones Urine Trace (Negative); Leukocyte Esterase Urine 1+ (Negative); Nitrate Urine Negative (Negative); Protein Urine 1+ (Negative); Specific Gravity, Urine 1.023 (1.005-1.030); Urine Appearance Turbid (CLEAR)
[2024-07-17 08:18] LABS: Add Urine Microscopic? YES; Bacteria Urine 4+ /hpf; Hyaline Casts Urine 2.87 /lpf; RBC Urine 0-2 /hpf (0-2); Squamous Epithelial Cell Urine 21-50 /hpf (0-5); WBC Urine 21-50 /hpf (0-5)
[2024-07-17 08:30] LABS: Urine Color Orange (Yellow)
[2024-07-17 08:46] LABS: Urine Creatinine 256 mg/dL (28-217)
[2024-07-17 08:57] LABS: UPRO/UCREAT Ratio 0.13 mg/mg CR; Urine Protein Random 34 mg/dL
[2024-07-17 09:05] LABS: Alanine Aminotransferase 6 U/L (0-33); Albumin Level 3.8 g/dL (3.5-5.2); Aspartate Amino Transferase 12 U/L (0-32); Chloride 101 mmol/L (98-107); Globulin 3.2 g/dL (1.3-4.6); Potassium 3.8 mmol/L (3.5-5.1); Sodium 137 mmol/L (136-145)
[2024-07-17 09:23] LABS: Alkaline Phosphatase 105 U/L (35-105); Blood Urea Nitrogen 9 mg/dL (6-20); Calcium 9.2 mg/dL (8.5-10.5); Creatinine Clr Calc Pharmacy 190.4865; Glomerular Filtration Rate 118.2 mL/min (90-130); Glucose 114 mg/dL (65-115); Total Bilirubin 0.5 mg/dL (0.15-1.2)
[2024-07-17 09:31] LABS: Anion Gap 21.8 (5-19); Carbon Dioxide 18 mmol/L (22-29); Uric Acid 6.6 mg/dL (2.4-5.7)
[2024-07-17 09:38] LABS: Osmolality Calculated 290 mOsm/kg (285-295)
--- NOTE | 2024-07-17 17:05 | PM.OPHPUD ---
Labor & Delivery H&P Update Date of Procedure: July 17, 2024 Date H&P Performed: 07/14/24 H&P update information: I have reviewed H&P completed within last 30 days, I have examined patient prior to procedure and No changes to prior documentation (Admitted for induction due to uncontrollable hypertension) Admission Diagnosis: Preop diagnosis: IUP
--- NOTE | 2024-07-17 18:39 | ANES.PREANE2 ---
Pre-Anesthetic Assessment Height/Weight: Height 1.7 m Weight 125.645 kg Pulse BP O2 Del Method 96 140/89 Room Air 07/17/24 18:14 07/17/24 18:14 07/17/24 06:55 Preop Diagnosis: IUP Labor Epidural Familial anesthetic complications: none Was Beta Timo taken within 24 hours: N/A Last intake: 1800: meal, clears current. Social No alcohol and No tobacco Exam alert, oriented x 3, clear to auscultation bilaterally and regular rate & rhythm Airway Submandibular: within normal limits Cervical ROM: within normal limits Mallampati: Class II Dentition: full Pulmonary None reported CV/HEM Hypertension None reported Hepatic Elevated liver enzymes patient reports they normalized and have remained normal. GI Gastroesophageal Reflux Disease Metabolic None reported Metabolic Syndrome [facility] [place]/[facility] None reported Neuropsych Anxiety Anesthetic Plan ASA status: 3 Anesthesia: Regional (specify below) (Epidural ) Medications/Allergies Home Medications ?Medication ?Instructions ?Recorded ?Confirmed ?Last Taken ?Type prenat.vits,rowena,ain-fexu-qaduw 1 tab PO DAILY 08/18/22 07/14/24 07/11/24 08:00 History cetirizine 10 mg tablet 10 mg PO DAILY PRN allergy 02/11/23 07/14/24 05/09/24 07:00 Rx symptoms #30 tabs ondansetron 4 mg disintegrating 4 mg PO Q8H PRN nausea and 01/24/24 07/14/24 Unknown Rx tablet vomiting #30 tabs aspirin 81 mg chewable tablet 81 mg PO DAILY 02/24/24 07/14/24 07/11/24 08:00 History nifedipine 30 mg tablet,extended 30 mg PO TID #90 tabs 07/07/24 07/14/24 07/11/24 15:00 Rx release 24 hr (Procardia XL) Allergies Allergy/AdvReac Type Severity Reaction Status Date / Time amoxicillin Allergy ADR-Swelling Verified 07/14/24 13:29 of the Eye [facility] Anesthesia Medical History Anxiety Infertility, anovulation Infertility associated with anovulation Irregular menses Hyperinsulinemia Subclinical hypothyroidism not currently on medication BMI 45.0-49.9, adult Hypertension labetalol effective Insomnia resolved now Metabolic syndrome Surgical History H/O umbilical hernia repair H/O cystoscopy No pertinent past surgical history Family History Father Hypertension Hyperlipidemia CAD (coronary artery disease) hx of stents Mother IBS (irritable bowel syndrome) Other Diabetes Stroke Denies family history of Colon cancer Thyroid cancer Clotting disorder Dementia Hypothyroidism Psychiatric illness Chronic kidney disease (CKD) Breast cancer Anesthesia complication Bleeding disorder Lung disease Cancer Uterine cancer Social History Smoking and tobacco/nicotine status: never used tobacco/nicotine Female Reproductive History : 1 Data Anesthesia 07/17/24 07:10 07/17/24 07:10 Short CBC 07/17/24 Range/Units 07:10 WBC 9.31 (3.29-11.43) 10^3/uL Hgb 12.30 (11.27-16.99) g/dL Hct 35.3 L (36-47) % MCV 94.1 (85-98) fl Plt Count 215 (157-399) 10^3/cmm Neut % (Auto) 75.4 % Neut # (Auto) 7.02 (1.8-7.7) 10^3/uL BMP 07/17/24 07:10 Sodium 137 Potassium 3.8 Chloride 101 Carbon Dioxide 18 L BUN 9 Creatinine 0.6 Glucose 114 Calcium 9.2 Liver Function 07/17/24 Range/Units 07:10 Total Bilirubin 0.5 (0.15-1.2) mg/dL AST 12 (0-32) U/L ALT 6 (0-33) U/L Alkaline Phosphatase 105 (35-105) U/L Albumin 3.8 (3.5-5.2) g/dL Urine 07/17/24 Range/Units 07:49 Urine Color [place] A (Yellow) Urine Appearance Turbid A (CLEAR) Urine pH 6.0 (5-7) Ur Specific [place] 1.023 (1.005-1.030) Urine Protein 1+ A (Negative) Urine Glucose (UA) Negative (Normal) Urine Ketones Trace (Negative) Urine Nitrate Negative (Negative) Urine Bilirubin Negative (Negative) Ur Leukocyte Esterase 1+ A (Negative) Urine RBC 0-2 (0-2) /hpf Urine WBC 21-50 H (0-5) /hpf Blood Bank 07/17/24 07:10 Blood Type O Negative Rho(D) Type Rh negative Antibody Screen Negative Cardiac Studies: No Data to Display
[2024-07-17] MEDS: hyDROXYzine 25 mg Capsule 50 MG PO (19:26)
[2024-07-17] MEDS: sodium chloride 0.9% 1,000 ML 999 ML IV (21:00)
[2024-07-18] VITALS (50 sets, daily range): BP systolic 128–163; BP diastolic 67–107; PULSE 77–108; RESP 16; TEMP 35.9–36.8
[2024-07-18] MEDS: oxytocin 30 UNIT/500 ML BAG IV (08:00)
--- NOTE | 2024-07-18 12:03 | PC.NURSE ---
Dr. Quick at bedside at 1145 gave verbal orders to increase to moderate dose pitocin.
[2024-07-18] MEDS: dextrose 5%-lactated ringers 1,000 ML 125 ML IV ×2 (12:17→20:30)
[2024-07-19] VITALS (86 sets, daily range): BP systolic 117–187; BP diastolic 71–107; PULSE 63–173; RESP 16–17; TEMP 36–37.1; O2SAT 98
[2024-07-19] MEDS: dextrose 5%-lactated ringers 1,000 ML 125 ML IV ×2 (04:54→14:32)
[2024-07-19] MEDS: sodium chloride 0.9% 1,000 ML 999 ML IV (08:20)
[2024-07-19] MEDS: ROPivacaine syringe 100 MG/50 ML SYRINGE 12 MG EPIDURAL ×3 (09:18→16:48)
--- NOTE | 2024-07-19 10:28 | P.ANES_ITS ---
Anesthesia Procedures Procedure/Date: 07/19/24 Epidural: Time Out Performed: Yes Consents Signed: Procedure Consent Consent: requested by attending/covering physician and from patient Lumbar Level: L3-L4 Epidural position: sitting Epidural procedure: sterile prep of area, 1% lidocaine to numb the area, 18 g needle, negative for paresthesia p assed, neg for paresthesia, test dose given, 1.5% xylocaine 1:200k epi, 0.2% Ropivacaine bolus ml, placed PCEA, no systemic response, sterile dressing applied, L.U.D. no apparent complications and 0.2% Ropiavacaine @ mls/hr Additional Comments: Loss of resistance at 9 cm, catheter was left at 15 cm to the skin. Ropivacaine 0.2% set at 12 mL/h
[2024-07-19] MEDS: oxytocin 30 UNIT/500 ML BAG 10 UNIT IV (10:30)
--- NOTE | 2024-07-19 11:12 | PM.PN ---
Subjective Subjective: Mrs. Cantu 29-year-old female EGA at 37 weeks, uncontrolled hypertension, Vitals/I&O/Wt Last Vital Signs Temp 96.8 F L 07/19/24 10:05 Pulse 75 07/19/24 11:06 Resp 17 07/19/24 08:00 BP 159/78 07/19/24 11:06 O2 Del Method Room Air 07/17/24 06:55 07/18/24 07/19/24 07/19/24 22:59 06:59 14:59 Intake Total 1124.50 / 1657.75 1114.584 / 2772.334 1503.667 / 1503.667 Balance 1124.50 / 1657.75 1114.584 / 2772.334 1503.667 / 1503.667 Physical Exam Narrative: GA: Alert and oriented ?3. Lungs: Clear to auscultation bilaterally. Heart: Regular rhythm and rate. Abdomen: Gravid, full the height equals dates, nontender. 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 Extremities: no edema, no cyanosis, no calves pain. heart tracing: Basal rate: 140's bpm, Variability: moderate, Accelerations: present, Decelerations: absent, Contraction: q3min. Urinary Catheter Management: Chavez: Cath Placed During This Visit: yes Urinary Catheter Date of Insertion: 07/19/24 Urinary Catheter Time of Insertion: 10:00 Data 07/17/24 07:10 07/17/24 07:10 A&P Assessment and plan (1) Term : Ms. Cantu is a 28 year old patient with an LMP of 10/24/23, an VIKRAM of 08/07/24 based on her dating ultrasound (not consistent with her LMP) placing her at 37+2weeks gestation today. Admitted due to uncontrollable hypertension for induction. Misoprostol was given for cervical ripening, she had have a low response to oxytocin but progressing slowly. Rupture membranes spontaneously. heart tracing category 1. Anticipate vaginal delivery. A fresh oxytocin back was ordered. (2) Chronic hypertension affecting : Plan Continue induction Continue monitoring Anticipate vaginal delivery PDMP PDMP Reviewed: Not Reviewed Attestations Medical Necessity Statement*: In my professional opinion per admitting diagnosis. Coding Level of Care Code Acute Code for Chg Fwd Diagnoses Term Z34.90 Chronic hypertension affecting O10.919
[2024-07-19] MEDS: ondansetron 2 mg/ML SDV 2 mL 4 MG IVP ×2 (15:01→19:29)
--- NOTE | 2024-07-19 19:27 | P.PCNOB_ITS ---
Delivery Note: Date of delivery: July 19, 2024 Pre-delivery diagnoses: Term at 37 weeks 2 days Chronic hypertension Uncontrollable hypertension Procedure: Spontaneous vaginal delivery Delivering Physician: Ignacio Quick MD Estimated blood loss (mL): 300 Findings: Term male infant Post Delivery Diagnoses: Rh negative status during : Qualifiers: Trimester: second trimester Qualified Code(s): O26.892 - Other specified related conditions, second trimester; Z67.91 - Unspecified blood type, Rh negative Hypertension: Qualifiers: Hypertension type: primary hypertension Qualified Code(s): I10 - Essential (primary) hypertension Delivery: The patient was noted to be complete and pushing, so was placed in the dorsal lithotomy position, prepped and draped in the usual sterile fashion for a v aginal delivery. Pt. Noted to have epidural anesthesia. At 1911 the patient delivered a viable term male weighing 3020 g with scores of 8 and 9 at one and five minutes, respectively. The vertex was delivered spontaneously over intact perineum. The patient was asked to push and the head delivered spontaneously in the PEMA position, over an intact perineum. A nuchal cord was checked and none noted. The anterior shoulder delivered easily and the posterior shoulder followed. The remainder of the infant was easily delivered and the oropharynx and nasopharynx was bulb suctioned. The was noted to have spontaneous cry and spontaneous movement of all four extremities. The cord was clamped x 2 and cut and noted to have 2 arteries and one vein. The infant was passed to the mother's abdomen where nursing personnel were in attendance. Cord blood sample was then obtained. The placenta delivered intact spontaneously and the uterus was explored. 20 units of Pitocin was placed in the IV bag to firm the uterus. Examination of the cervix and vaginal vault did not reveal any lacerations. Examination of the perineum showed no lacerations only a small first-degree tear did not need suturing. The vaginal pack was then removed. The patient tolerated this procedure well, and recovered in L&D with her infant in the LDR room. All sponge and needle counts were correct. Post-Delivery Status: Good and stable History History History 1 Term 0 Miscarriages/Ectopic Living Children A&P Assessment and plan (1) Term delivered: (2) Rh negative status during : Qualifiers: Trimester: second trimester Qualified Code(s): O26.892 - Other specified related conditions, second trimester; Z67.91 - Unspecified blood type, Rh negative (3) Hypertension: Qualifiers: Hypertension type: primary hypertension Qualified Code(s): I10 - Essential (primary) hypertension (4) Chronic hypertension affecting : Plan observation PDMP PDMP Reviewed: Not Reviewed Coding Level of Care Code Acute Code for Chg Fwd Diagnoses Term delivered O80 Rh negative status during in second trimester O26.892; Z67.91 Trimester: second trimester Primary hypertension I10 Hypertension type: primary hypertension Chronic hypertension affecting O10.919
[2024-07-20] VITALS: BP 119/78; PULSE 95; RESP 15; TEMP 36.6; TEMP 36.7; O2SAT 99
[2024-07-20 01:30] VITALS: BP 133/81; PULSE 97; RESP 15; TEMP 36.6; O2SAT 99
[2024-07-20 04:02] VITALS: BP 146/86; PULSE 78; RESP 16; TEMP 36.6; O2SAT 99
[2024-07-20 07:41] LABS: Mean Corpuscular HGB Conc 34.8 g/dL (30-55); Mean Corpuscular Hemoglobin 33.2 pg (27-33); Mean Corpuscular Volume 95.4 fl (85-98); Mean Platelet Volume 10.2 fL (7.4-10.4); Platelet Count 154 10^3/cmm (157-399); Red Blood Count 2.83 10^6/uL (3.85-5.65); Red Cell Distribution Width 16.6 % (12.1-15.1); White Blood Count 15.06 10^3/uL (3.29-11.43)
--- NOTE | 2024-07-20 08:00 | ANE.PACU2 ---
Inpatient post-anesthesia follow up: Airway intact: Yes Vital signs: Temperature 98.0 F Pulse Rate 102 Respiratory Rate 16 Blood Pressure 135/91 Pulse Oximetry 98 Oxygen Delivery Me thod Room Air Oxygen Flow Rate Fraction of Inspir ed Oxygen Hydration adequate: Yes Nausea and vomiting: No Pain level: 1 Mental status: Baseline Epidural Start/End: Epidural Start Date: 07/19/24 Epidural Start Time: 09:08 Epidural End Date: 07/19/24 Epidural End Time: 20:10
[2024-07-20] MEDS: PRENATAL VIT NO.130/IRON/FOLIC 1 EACH TABLET PO (08:34)
[2024-07-20] MEDS: ibuprofen 800 mg tablet PO ×2 (08:35→16:01)
[2024-07-20] MEDS: docusate sodium 100 mg Capsule PO (08:35)
[2024-07-20] MEDS: benzocaine-menthol 78 gm Canister 1 SPRAY TOPICAL (09:42)
--- NOTE | 2024-07-20 15:43 | PM.OBGYDC ---
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 Date of Admission: 07/17/24 07:52 Date of Discharge: 07/20/24 Attending Provider at Admission: Ignacio Quick MD Attending Provider at Discharge: Ignacio Quick MD Primary Care Provider: Brandon Davidson Diagnoses at Discharge Discharge Diagnosis (1) Term delivered: Status: Acute (2) Rh negative status during : Status: Acute Qualifiers: Trimester: second trimester Qualified Code(s): O26.892 - Other specified related conditions, second trimester; Z67.91 - Unspecified blood type, Rh negative (3) Hypertension: Status: Acute Qualifiers: Hypertension type: primary hypertension Qualified Code(s): I10 - Essential (primary) hypertension Permanent problem details: labetalol effective (4) Chronic hypertension affecting : Status: Acute Reason for Visit Reason for Visit: Induction of labor Hospital Course Hospital Course Mrs. Cantu 29-year-old female with an estimated gestational age at 37 weeks 2 days, complicated by uncontrollable hypertension. She was admitted for induction. Misoprostol was given for cervical ripening and had a slow progress to a spontaneous vaginal delivery augmented with oxytocin without complications. She is afebrile and hemodynamically stable day 1. Tolerating diet well. Ambulating without difficulty. Bleeding under control.. She was counseled regarding pelvic rest for 6 weeks (no sex, no tampons, no vaginal douches). Return to the emergency room if any fever, increased bleeding or pain. Physical Exam Narrative: GA: Alert and oriented ?3. HEENT: WNL. Heart: Regular rate and rhythm. Lungs: Clear to auscultation bilaterally. Abdomen: Bowel sounds present, nontender. 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 Extremities: No edema, no cyanosis, no calves pain. Urinary Catheter Management: Chavez: Cath Placed During This Visit: yes Urinary Catheter Date of Insertion: 07/19/24 Urinary Catheter Time of Insertion: 10:00 History History History 1 Term 0 Miscarriages/Ectopic Living Children Discharge Data Studies Completed and Pending Laboratory Results WBC 15.06 10^3/uL (3.29-11.43) H 07/20/24 07:30 RBC 2.83 10^6/uL (3.85-5.65) L 07/20/24 07:30 Hgb 9.40 g/dL (11.27-16.99) L 07/20/24 07:30 Hct 27.0 % (36-47) L 07/20/24 07:30 MCV 95.4 fl (85-98) 07/20/24 07:30 MCH 33.2 pg (27-33) H 07/20/24 07:30 MCHC 34.8 g/dL (30-55) 07/20/24 07:30 RDW 16.6 % (12.1-15.1) H 07/20/24 07:30 Plt Count 154 10^3/cmm (157-399) L 07/20/24 07:30 MPV 10.2 fL (7.4-10.4) 07/20/24 07:30 Neut % (Auto) 75.4 % 07/17/24 07:10 Lymph % (Auto) 19.0 % 07/17/24 07:10 [place] % (Auto) 3.8 % 07/17/24 07:10 Eos % (Auto) 1.2 % 07/17/24 07:10 Baso % (Auto) 0.1 % 07/17/24 07:10 Neut # (Auto) 7.02 10^3/uL (1.8-7.7) 07/17/24 07:10 Lymph # (Auto) 1.8 10^3/uL (0.8-4.8) 07/17/24 07:10 [place] # (Auto) 0.4 10^3/uL (0.2-0.9) 07/17/24 07:10 Eos # (Auto) 0.1 10^3/uL (0.0-0.8) 07/17/24 07:10 Baso # (Auto) 0.0 10^3/uL (0.0-0.1) 07/17/24 07:10 Nucleated RBC % (auto) 0 % 07/17/24 07:10 Nucleated RBCs # 0.0 /100WBC 07/17/24 07:10 Sodium 137 mmol/L (136-145) 07/17/24 07:10 Potassium 3.8 mmol/L (3.5-5.1) 07/17/24 07:10 Chloride 101 mmol/L (98-107) 07/17/24 07:10 Carbon Dioxide 18 mmol/L (22-29) L 07/17/24 07:10 Anion Gap 21.8 (5-19) H 07/17/24 07:10 BUN 9 mg/dL (6-20) 07/17/24 07:10 Creatinine 0.6 mg/dL (0.5-0.9) 07/17/24 07:10 GFR Calculation 118.2 mL/min (90-130) 07/17/24 07:10 Glucose 114 mg/dL (65-115) 07/17/24 07:10 Calculated Osmolality 290 mOsm/kg (285-295) 07/17/24 07:10 Uric Acid 6.6 mg/dL (2.4-5.7) H 07/17/24 07:10 Calcium 9.2 mg/dL (8.5-10.5) 07/17/24 07:10 Total Bilirubin 0.5 mg/dL (0.15-1.2) 07/17/24 07:10 AST 12 U/L (0-32) 07/17/24 07:10 ALT 6 U/L (0-33) 07/17/24 07:10 Alkaline Phosphatase 105 U/L (35-105) 07/17/24 07:10 Total Protein 7.0 g/dL (6.6-8.7) 07/17/24 07:10 Albumin 3.8 g/dL (3.5-5.2) 07/17/24 07:10 Globulin 3.2 g/dL (1.3-4.6) 07/17/24 07:10 Urine Color Walker (Yellow) A 07/17/24 07:49 Urine Appearance Turbid (CLEAR) A 07/17/24 07:49 Urine pH 6.0 (5-7) 07/17/24 07:49 Ur Specific [place] 1.023 (1.005-1.030) 07/17/24 07:49 Urine Protein 1+ (Negative) A 07/17/24 07:49 Urine Glucose (UA) Negative (Normal) 07/17/24 07:49 Urine Ketones Trace (Negative) 07/17/24 07:49 Urine Blood Negative (Negative) 07/17/24 07:49 Urine Nitrate Negative (Negative) 07/17/24 07:49 Urine Bilirubin Negative (Negative) 07/17/24 07:49 Urine Urobilinogen 1.0 mg/dL (Negative) 07/17/24 07:49 Ur Leukocyte Esterase 1+ (Negative) A 07/17/24 07:49 Urine RBC 0-2 /hpf (0-2) 07/17/24 07:49 Urine WBC 21-50 /hpf (0-5) H 07/17/24 07:49 Ur Squamous Epith Cells 21-50 /hpf (0-5) H 07/17/24 07:49 Amorphous Sediment Not Reportable 07/17/24 07:49 Urine Bacteria 4+ /hpf (NONE) H 07/17/24 07:49 Hyaline Casts 2.87 /lpf 07/17/24 07:49 U Random Total Protein 34 mg/dL 07/17/24 07:49 Urine Creatinine 256 mg/dL (28-217) H 07/17/24 07:49 Protein/Creatinin Ratio 0.13 mg/mg CR 07/17/24 07:49 Blood Type O Negative 07/17/24 07:10 Rho(D) Type Rh negative 07/17/24 07:10 Antibody Screen Negative 07/17/24 07:10 Vitals Last Vital Signs Temp 97.9 F 07/20/24 04:02 Pulse 78 07/20/24 04:02 Resp 16 07/20/24 04:02 BP 146/86 07/20/24 04:02 Pulse Ox 99 07/20/24 04:02 O2 Del Method Room Air 07/20/24 04:02 Results Labs OB ([facility]): Obstetrics US 07/13/24 Obstetrics US/Biophysical Profile 06/29/24 Blood Type O Negative 07/17/24 Antibody Screen Negative 07/17/24 Hct 27.0 % (36-47) L 07/20/24 Hgb 9.40 g/dL (11.27-16.99) L 07/20/24 Rho(D) Type Rh negative 07/17/24 Plt Count 154 10^3/cmm (157-399) L 07/20/24 Hep Bs Antigen Non-reactive (Nonreactive) 12/30/23 Hepatitis C Antibody Non-reactive (Nonreactive) 12/30/23 Rubella IgG Antibody 44.2 IU/mL (0.0-10.0) H 12/30/23 RPR Nonreactive (Nonreactive) 12/30/23 HIV 1&2 Ab & HIV 1 Ag Non-reactive (Non-Reactiv) 12/30/23 TSH 1.25 uIU/mL (0.27-4.20) 12/30/23 Free T4 1.25 ng/dL (0.82-1.77) 12/30/23 C.trachomatis RNA (TMA) Not detected (NOT DETECTED) 12/30/23 N.gonorrhoeae RNA (TMA) Not detected (NOT DETECTED) 12/30/23 T. vaginalis Amp RNA Not detected (NOT DETECTED) 12/30/23 Chlamydia/GC Comment See note 12/30/23 Glucose 1 Hr 50 gm 108 mg/dL (85-140) 04/21/24 Gest Glucose Tolerance 124 mg/dL (70-139) 02/08/24 Hemoglobin A1c 4.4 % (4.0-6.0) 10/26/23 Uric Acid 6.6 mg/dL (2.4-5.7) H 07/17/24 Progesterone 1.66 ng/mL 11/13/23 FSH 5.8 mIU/mL 10/26/23 Total Estradiol 41.6 pg/mL 10/26/23 Ser , Semi-Qnt 7471.00 mIU/mL 12/09/23 HCG, Qual Negative (Negative) 05/01/23 Urine Opiates Screen Negative ng/mL (Negative) 12/30/23 Ur Barbiturates Screen Negative ng/mL (Negative) 12/30/23 Ur Phencyclidine Scrn Negative ng/mL (Negative) 12/30/23 Ur Amphetamines Screen Negative ng/mL (Negative) 12/30/23 U Benzodiazepines Scrn Negative ng/mL (Negative) 12/30/23 Urine Cocaine Screen Negative ng/mL (Negative) 12/30/23 U Marijuana (THC) Screen Negative ng/mL (Negative) 12/30/23 Micro Urine Specimen 06/29/24 Prolactin 14.97 ng/mL (4.8-23.3) 10/26/23 Discharge Plan Discharge Patient Disposition: Home Condition: Stable Prescriptions: New docusate sodium [Colace] 100 mg capsule 100 mg PO BID Qty: 60 0RF acetaminophen 325 mg capsule 325 mg PO Q4H PRN (Reason: fever or pain) Qty: 60 0RF ferrous sulfate [Iron (ferrous sulfate)] 325 mg (65 mg iron) tablet 325 mg PO BID Qty: 60 0RF ibuprofen 800 mg tablet 800 mg PO TID PRN (Reason: pain) Qty: 60 0RF Continued prenat.vits,rowena,mbp-lfps-guiah Tablet 1 tab PO DAILY aspirin 81 mg tablet,chewable 81 mg PO DAILY nifedipine [Procardia XL] 30 mg tablet extended release 24hr 30 mg PO TID Qty: 90 3RF Discharge Orders: Discharge Order (Routine); Ordered 07/20/24 Ordered By: Ignacio Quick Referrals: Stefania Kim APN, NALDO [Nurse Practitioner] - 08/29/24 8:15 am Ignacio Quick MD [Physician] - 2 weeks (Monitor blood pressure) Discharge Diet: Usual diet Discharge Activity: Resume usual activity Patient Instructions: Depression (DC), Opioid Safety (DC), Preeclampsia and Eclampsia After Delivery (GEN), Hemorrhage (DC), OB Discharge Report, OB Food/Drug Interaction Guide, Opioid Safety, OB Home Care, OB Vaginal Deliveries - [facility], Abnormal Bleeding Activity Restrictions/Additional Instructions: 1. Please call [facility] on next working day to make your appointment in 2 weeks to monitor blood pressure. 2. Please stay home until you come back to the clinic on first post-hospatilization check up. 3. Please follow instructions on your medications CAREFULLY. 4. If you have abdominal incision, do not cover it unless dressing is necessary because of drainage. OK to shower, but avoid bath. Leave steri-strips until they fall off. If they are still on one week after surgery, you may remove them. 5. If you had vaginal surgery or vaginal repair, Dr. Quick may instruct you to take SITZ bath. 6. Yellow, blood tinged odorous vaginal discharge is usually normal after hysterectomy or vaginal surgeries. 7. No SEXUAL INTERCOURSE, tampons, or douches until you are completely released from the post-operative care. 8. Avoid constipation by eating right and maybe using some Metamucil or Milk of Magnesia. 9. All prescription refills are given during the working hours. Please do no wait till it runs out. Call the clinic at [phone] before your medication runs out. The clinic will get in touch with your doctor to prescribe medications if necessary. 10. Please remain within 40 mile radius from our hospital because emergencies do happen now and then during the post-operative period. 11. If you have stairs at home, take one step at a time slowly and minimize the number of trips. It helps to stay in one floor for the next few days. No lifting except what you can lift by one hand until you are released from the post-operative care. 12. Driving is discouraged until you are well healed. It may be 3-4 weeks before you feel strong enough to drive. You should be able to turn and look through the rear window without pain and you should be able to push the brake pedal very hard without pain before you drive. No fast rules, but SAFETY should be your primary concern. DO NOT drive if you are on sedating medications such as narcotics. 13. Call the clinic (during working hours) to make urgent appointment or go to the Emergency room, if any of the following occurs: i. Vaginal bleeding becomes heavy, more than a period. ii. Incision becomes red and sore, or drains pus. iii. Your TEMPERATURE is over 100.4F or you have chill. iv. IV site becomes red and swollen (a little ``knot?? is usually OK) v. Persistent nausea and vomiting vi. Persistent constipation or diarrhea vii. Rash or allergic reaction to medications. 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
[2024-07-20 16:43] VITALS: BP 140/91; PULSE 81; TEMP 36.6
[2024-07-20 18:23] VITALS: BP 127/90
[2024-07-20 20:05] VITALS: BP 135/91; PULSE 102; RESP 16; TEMP 36.7; O2SAT 98
== END 2024-07-20 20:10 | disposition home or self-care (01) | DRG 806 ==
LOC: OPOB 07-18 10:06 → OBGYN 07-18 10:06
PROVIDERS: Admitting Provider Obstetrics & Gynecology; PCP Clinical Nurse Specialist Adult Health; Visit Provider Obstetrics & Gynecology
DX: O10.02 Pre-existing essential hypertension complicating childbirth (principal); O36.0930 Maternal care for other rhesus isoimmunization, third trimester, not applicable or unspecified; Z37.0 Single live birth; O99.344 Other mental disorders complicating childbirth; O99.284 Endocrine, nutritional and metabolic diseases complicating childbirth; E03.8 Other specified hypothyroidism; Z3A.37 37 weeks gestation of pregnancy; F41.9 Anxiety disorder, unspecified; E16.1 Other hypoglycemia; O75.89 Other specified complications of labor and delivery; E88.810 Metabolic syndrome
CPT/HCPCS: 36415; 51702; 59409; 80053; 81001; 82570; 84156; 84550; 85025; 85027; 86850; 86900; 96374; 96376; J2405; J2590; J2795; J7030; J7121

== ENCOUNTER → 2024-11-09 07:45 | Outpatient (BNVA) | payer SELFPAY | PROVIDERS: PCP Clinical Nurse Specialist Adult Health; Visit Provider Dermatology | DX: E55.9 Vitamin D deficiency, unspecified (principal); E16.1 Other hypoglycemia; I10 Essential (primary) hypertension | CPT/HCPCS: 80053; 83036; 85025 ==